=== PATIENT | female | born 2000 | race Caucasian/White ===

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

== ENCOUNTER 2021-03-13 23:47 | Emergency (ER) | payer SELFPAY ==
[~2021-03-13] VITALS: Ht 170.1 cm; Wt 88.9 kg
[2021-03-14 00:18] LABS: BASO # 0.1 10*3/uL (0.0-0.1); BASO % 0.5 % (0.0-1.0); EOS % 0.3 % (1.0-4.0); HEMATOCRIT 36.1 % (37.0-47.0); LYMPH # 1.7 10*3/uL (1.3-4.4); LYMPH % 14.1 % (27.0-41.0); MEAN CELL VOLUME 83.4 fl (81.0-99.0); MEAN CORPUSCULAR HGB 25.9 pg (27.0-31.0); MEAN PLATELET VOLUME 11.2 fl (9.6-12.3); MONO # 0.7 10*3/uL (0.1-1.0); NEUT # 9.5 10*3/uL (2.3-7.9); NEUT % 78.7 % (47.0-73.0); PLATELET COUNT AUTOMATED 226 10*3/uL (130-400); RED BLOOD COUNT 4.33 10*6/uL (4.10-5.10); RED CELL DISTRI WIDTH 14.7 % (0-14.5); WHITE BLOOD COUNT 12.1 10*3/uL (4.8-10.8)
[2021-03-14 00:56] LABS: BILIRUBIN Negative (Negative); BLOOD Negative (Negative); CLARITY Cloudy (Clear); COLOR Yellow (Yellow); GLUCOSE Negative (Negative); KETONE Negative (Negative); LEUKO ESTERASE 1+ (Negative); NITRITE Negative (Negative); PH 7.5 (4.5-8.0); SPECIFIC GRAVITY <= 1.005 (1.001-1.030)
[2021-03-14 01:23] LABS: BACTERIA 2+
[2021-03-14 01:28] LABS: ALBUMIN 3.4 gm/dl (3.1-4.5); ALKALINE PHOSPHATASE 79 U/L (45-117); BUN 8 mg/dl (7-24); CHLORIDE 110 mmol/L (98-107); CREATININE 0.74 mg/dL (0.55-1.02); POTASSIUM 3.3 mmol/L (3.5-5.1); SGOT/AST 14 IU/L (3-35); SGPT/ALT 29 U/L (12-78); SODIUM 142 mmol/L (136-145)
[2021-03-14] MEDS ORDERED: NAPROSYN500 MG PO (01:53)
[2021-03-14] MEDS ORDERED: CIPRO500 MG PO (01:53)
== END 2021-03-14 02:37 | disposition home or self-care (01) ==
LOC: ED 23:47
PROVIDERS: Internal Medicine
DX: N83.201 Unspecified ovarian cyst, right side (principal); N39.0 Urinary tract infection, site not specified; Z79.2 Long term (current) use of antibiotics

== ENCOUNTER 2021-06-21 18:51 | Emergency (ER) | payer SELFPAY ==
[~2021-06-21 18:51] MED LIST changes: +CIPRO500 MG PO; +NAPROSYN500 MG PO
== END 2021-06-22 00:39 | disposition left against medical advice (07) ==
LOC: ED 18:51
DX: R11.10 Vomiting, unspecified (principal); Z53.21 Procedure and treatment not carried out due to patient leaving prior to being seen by health care provider

== ENCOUNTER 2021-07-22 19:25 | Emergency (ER) | payer OTHER ==
[~2021-07-22] VITALS: Ht 170.1 cm; Wt 82.1 kg
[2021-07-22] MEDS ORDERED: PRENATA CHEWAB1 EACH PO (19:53)
== END 2021-07-22 23:08 | disposition left against medical advice (07) ==
LOC: ED 19:25
DX: O26.892 Other specified pregnancy related conditions, second trimester (principal); R10.9 Unspecified abdominal pain; M54.9 Dorsalgia, unspecified; Z53.21 Procedure and treatment not carried out due to patient leaving prior to being seen by health care provider

== ENCOUNTER 2022-10-09 12:21 | Emergency (ER) | payer OTHER ==
[~2022-10-09] VITALS: Ht 167.6 cm; Wt 79.4 kg
[~2022-10-09 12:21] MED LIST changes: +PRENATA CHEWAB1 EACH PO
[2022-10-09] MEDS ORDERED: NAPROSYN500 MG PO (15:33)
[2022-10-09] MEDS ORDERED: ZANAFLEX4 MG PO (15:33)
[2022-10-09] MEDS ORDERED: ONDANSETRON4 MG SL (15:33)
== END 2022-10-09 15:50 | disposition home or self-care (01) ==
LOC: ED 12:21
DX: S16.1XXA Strain of muscle, fascia and tendon at neck level, initial encounter (principal); S43.401A Unspecified sprain of right shoulder joint, initial encounter; S09.90XA Unspecified injury of head, initial encounter; Z79.899 Other long term (current) drug therapy; Y08.89XA Assault by other specified means, initial encounter; Y93.89 Activity, other specified; Y92.89 Other specified places as the place of occurrence of the external cause; Y99.8 Other external cause status